=== PATIENT | female | born 1945 | race African-American/Black ===

== ENCOUNTER → 2017-07-15 | Outpatient (CLI) | payer MEDICARE ==
[~2017-07-15] MED LIST: MELO7.5 PO; PERC5TAB12 PO; TRAM50TA PO; TYLE325T PO; VITD400 PO; VOLT1GEL4 TP
[2017-07-15 09:57] LABS: AUTOMATED NEUTROPHIL # 4.4 TH/MM3 (1.8-7.7); BASOPHIL # 0.1 TH/MM3 (0-0.2); BASOPHIL % 0.9 % (0.0-2.0); EOSINOPHIL # 0.2 TH/MM3 (0-0.4); EOSINOPHIL % 2.6 % (0.0-4.0); HEMATOCRIT 33.9 % (35.0-46.0); HEMO FLAGS DIFF FINAL; LYMPH % 20.2 % (9.0-44.0); LYMPHOCYTE # 1.3 TH/MM3 (1.0-4.8); MEAN CELL VOLUME 67.7 FL (80.0-100.0); MEAN CORPUSCULAR HEMOGLOBIN 21.6 PG (27.0-34.0); MONO % 8.3 % (0.0-8.0); PLATELET COUNT 270 TH/MM3 (150-450); RED BLOOD COUNT 5.01 MIL/MM3 (4.00-5.30); RED CELL DISTRIBUTION WIDTH 14.6 % (11.6-17.2); WHITE BLOOD COUNT 6.4 TH/MM3 (4.0-11.0)
[2017-07-15 10:00] LABS: BLOOD, URINE NEG (NEG); COMMENT (UR) CULT NOT INDICATED; CULTURE IF INDICATED CULT NOT INDICATED; GLUCOSE,URINE NEG (NEG); KETONE, URINE NEG (NEG); MUCUS URINE FEW /lpf (OCC); NITRITE,URINE NEG (NEG); PH, URINE 5.5 (5.0-8.5); SQUAMOUS EPITHELIAL CELL URINE 1 /hpf (0-5); URINE COLOR YELLOW (YELLW/STRAW)
[2017-07-15 10:13] LABS: BICARBONATE 28.6 MEQ/L (21.0-32.0); POTASSIUM 4.1 MEQ/L (3.5-5.1)
--- NOTE | 2017-07-15 13:16 | EKG ---
Date Performed: 07/15/2017 Time Performed: 09:21:05 PTAGE: 71 years EKG: Sinus rhythm VOLTAGE CRITERIA FOR LVH POSSIBLE ANTERIOR MYOCARDIAL INFARCTION, OF INDETERMINATE AGE ABNORMAL ECG NO PREVIOUS TRACING DOCTOR: Adriano Mercado Interpretating Date/Time 07/15/2017 13:14:22
== END ==
LOC: CPRE 08:11
PROVIDERS: ATTEND Orthopaedic Surgery Orthopaedic Surgery of the Spine
DX: Z01.812 Encounter for preprocedural laboratory examination (principal); Z01.810 Encounter for preprocedural cardiovascular examination; M16.12 Unilateral primary osteoarthritis, left hip
CPT/HCPCS: 36415; 80048; 81001; 85025; 93005

== ENCOUNTER 2017-07-26 08:45 | Inpatient (IN) | payer MEDICARE ==
[~2017-07-26 08:45] MED LIST changes: -MELO7.5 PO
[2017-08-05] MEDS ORDERED: GENTAMICIN SULFATE 80 MG/2 ML VIAL ONE (08:31)
[2017-08-05] MEDS ORDERED: CHLORHEXIDINE GLUCONATE 4% SOLN 120 ML BTL TOPICAL SCH (09:30)
[2017-08-05] MEDS ORDERED: INSULIN HUMAN REGULAR 1,000 UNITS/10 ML VIAL SQ PRN (09:30)
[2017-08-05] MEDS ORDERED: SODIUM CHLORID 0.9% 500 ML IV PRN (09:30)
[2017-08-05] MEDS ORDERED: METOPROLOL TARTRATE 25 MG TAB PO PRN (09:30)
[2017-08-05] MEDS ORDERED: LACTATED RINGER'S 1000 ML IV PRN (09:30)
[2017-08-05] MEDS ORDERED: POVIDONE IODINE 5% (ANTISEPSIS KIT) 4 APPLICATIONS EACH NARE PRN (09:30)
[2017-08-05] MEDS ORDERED: CHLORHEXIDINE GLUCONATE 2 % 1 PACK (2 CLOTHS) TOPICAL PRN (09:30)
[2017-08-05] MEDS ORDERED: ACETAMINOPHEN 1000 MG/100 ML 100 ML IV ONE (10:39)
[2017-08-05] MEDS ORDERED: ARTIFICIAL TEARS OPTH OINT 3.5 APPLIC/3.5 GM TUBO ONE (10:39)
[2017-08-05] MEDS: VANCOMYCIN 1000 MG/NS 250 ML (for <70 kg) IV SCH ×4 (11:45→12:51)
[2017-08-05] MEDS: ceFAZolin 2 GM PREMIX 50 ML IV SCH ×2 (12:10→12:49)
[2017-08-05] MEDS ORDERED: PROPOFOL 500 MG/50 ML INJ 100 ML ONE (13:04)
--- NOTE | 2017-08-05 14:07 | HHI.PR ---
Immediate Post Op Note Procedure Date: Aug 05, 2017 Pre Op Diagnosis: L Hip severe OA,Acetabular Protrusio;RA Post Op Diagnosis: Same Surgeon: Connor Hickman MD Operational Trainer(s): Kelly Segura PA-C Procedure: L THR,Acetabular BG Complications: None Specimen(s) removed: None Estimated blood loss: 650cc Anesthesia: Spinal Drains: None Patient to: SDS Patient Condition: Good Implant/Devices: SEE IMPLANT LOG (if applicable) Date/Time of Procedure: SEE SURGICAL CARE RECORD Connor Hickman MD Aug 05, 2017 14:07
--- NOTE | 2017-08-05 14:07 | HHI.PR ---
Immediate Post Op Note Procedure Date: Aug 05, 2017 Pre Op Diagnosis: L Hip severe OA,Acetabular Protrusio;RA Post Op Diagnosis: Same Surgeon: Connor Hickman MD Pipe Stem Sawyer(s): Kelly Segura PA-C Procedure: L THR,Acetabular BG Complications: None Specimen(s) removed: None Estimated blood loss: 650cc Anesthesia: Spinal Drains: None Patient to: SDS Patient Condition: Good Implant/Devices: SEE IMPLANT LOG (if applicable) Date/Time of Procedure: SEE SURGICAL CARE RECORD Connor Hickman MD Aug 05, 2017 14:07
[2017-08-05] MEDS ORDERED: WALKER WHEELS/F1 MIS (14:13)
[2017-08-05] MEDS ORDERED: BEDSIDE COMMODE1 MI1 (14:13)
[2017-08-05] MEDS: SODIUM CHLORIDE 0.9% FLUSH 5 ML FLUSH IVF SCH ×2 (14:15→20:35)
[2017-08-05] MEDS ORDERED: Post-op Orders (for Pharmacy) MISC XX ONE (14:15)
[2017-08-05] MEDS ORDERED: SODIUM CHLORIDE 0.9% FLUSH 5 ML FLUSH IVF PRN (14:15)
[2017-08-05] MEDS ORDERED: ALUMINUM/MAGNESIUM/SIMETH 30 ML CUP PO PRN (14:15)
[2017-08-05] MEDS ORDERED: ZOLPIDEM TARTRATE 5 MG TAB PO PRN (14:15)
[2017-08-05] MEDS ORDERED: *morphine SULFATE 8 MG/ML PERIprocedure ONLY ONE ×3 (14:23→15:06)
[2017-08-05] MEDS ORDERED: DO NOT ADM ANY ANTICOAGULANT DRUGS PRN (14:25)
[2017-08-05] MEDS: LACTATED RINGER'S 1000 ML INJ 1,000 ML IV SCH (15:00)
[2017-08-05 15:10] LABS: HEMATOCRIT 24.4 % (35.0-46.0); HEMOGLOBIN 9.4 GM/DL (11.6-15.3)
--- NOTE | 2017-08-05 15:20 | PD.CONS ---
HPI Service [facility] Hospitalists Consult Requested By Dr. Connor Hickman Reason for Consult Medical Management Primary Care Physician Diagnoses: History of Present Illness Mrs. Bennett is a pleasant 72 y/o AAF with osteoarthritis, rheumatoid arthritis, GERD, chronic anemia and hx of breast cancer in 1998. [place] [facility] for left hip total arthroplasty with Dr. Hickman. [facility] Hospitalist team was consulted to help with medical management. Pt is seen post-operatively in the PACU but is still quite drowsy and had just received Morphine for pain. The history was obtained from the chart and review of the outpt medical records. Pt had a reported 650cc of estimated blood loss during surgery, repeat CBC post-op with Hgb 9.4. Pt does not have a Cotto cath in place. Review of Systems ROS Limitations: Clinical Condition Past Family Social History Past Medical History Per review of outpt records: Rheumatoid arthritis, follows with Dr. Krystal ANDERSEN Vitamin D Deficiency HTN per outpt records but not on any medications for this Hyperlipidemia per outpt records but not on any medications for this Thyroid goiter Osteoporosis Osteoarthritis Hx of breast cancer Hx of DVT while on OCP within the first year after her her first child was born MGUS Anemia Sickle cell trait Past Surgical History Per review of outpt records: Left Mastectomy, 1998 Right breast lumpectomy Reported Medications Percocet (Oxycodone-Acetaminophen) 5-325 mg Tab 1 Tab PO Q6H PRN Tylenol (Acetaminophen) 325 Mg Tab 325 Mg PO Q6H PRN Voltaren (Diclofenac Sodium) 1 % Gel..gram. 4 Gm TP QID Vitamin D3 (Cholecalciferol) 400 Unit Tab 400 Units PO DAILY Allergies: Coded Allergies: Sulfa (Sulfonamide Antibiotics) (Verified Allergy, Severe, 07/15/17) zinc (Verified Allergy, Severe, 07/15/17) Family History Per review of outpt records: Mother from a stroke at 91 y/o Sister at age 22 from blood clots Social History Per review of outpt records: Remote hx of tobacco use, smoked 1/2 ppd x 15 years, quit in 1977 No reported alcohol or illicit drug use Pt is , she has 2 children Physical Exam Vital Signs Vital Signs Date Time Temp Pulse Resp B/P (MAP) Pulse Ox O2 Delivery O2 Flow Rate FiO2 08/05/17 09:16 98.6 70 18 136/74 94 98 Physical Exam GENERAL: This is a well-nourished, well-developed patient, in no apparent distress. SKIN: No rashes, ecchymoses or lesions. Cool and dry. HEENT: Atraumatic. Normocephalic. No temporal or scalp tenderness. No scleral icterus. Airway patent. NECK: Trachea midline, supple, nontender, no meningeal signs. CARDIO: Regular. RESP: CTA bilaterally. No wheezes, rales, or rhonchi. ABD: +BS, soft, non-tender, nondistended. EXT: Extremities without clubbing, cyanosis, or edema. NEURO: Awake and alert. Motor and sensory grossly within normal limits. Normal speech. Assessment and Plan Problem List: (1) Osteoarthritis of left hip ICD Codes: M16.12 - Unilateral primary osteoarthritis, left hip Status: Chronic Plan: - Pt s/p left total hip arthroplasty on 08/05/[address] Hickman - Post-op pain control per Ortho - PT daily - IS - Constipation precautions - PPI - DVT prophylaxis with Coumadin (2) Chronic anemia ICD Codes: D64.9 - Anemia, unspecified Status: Chronic Plan: - Pt had about 650cc of blood loss reported during surgery - Repeat post-op Hgb 9.4, preop labs with hgb 10.9 - Monitor labs (3) GERD (gastroesophageal reflux disease) ICD Codes: K21.9 - Gastro-esophageal reflux disease without esophagitis Status: Chronic Plan: - PPI (4) Rheumatoid arthritis ICD Codes: M06.9 - Rheumatoid arthritis, unspecified Status: Chronic Assessment and Plan Patient examined. Assessment and plan formulated with Arabella Carrera PA-C. I agree with the above. Problem Qualifiers (1) Osteoarthritis of left hip: Qualified Codes: M16.12 - Unilateral primary osteoarthritis, left hip Arabella Carrera Aug 05, 2017 15:20 Checo Blandon MD Aug 05, 2017 16:11
--- NOTE | 2017-08-05 15:42 | RADRPT ---
EXAM DATE/TIME: 08/05/2017 15:01 [place] COMPARISON: No previous studies available for comparison. INDICATIONS : Post op left hip surgery. MEDICAL HISTORY : None. SURGICAL HISTORY : None. ENCOUNTER: Initial ACUITY: 1 day PAIN SCORE: 8/10 LOCATION: Left Hip. FINDINGS: Patient is status post placement of a left hip prosthesis. There is good position and alignment of th e prosthesis and bony structures. The bony structures are grossly intact. Postsurgical changes are pr esent. CONCLUSION: Good position and alignment on this postoperative examination. Rahul Amato MD on August 05, 2017 at 15:41 Board Certified Radiologist. This report was verified electronically.
[2017-08-05 16:00] VITALS: BP 120/80; PULSE 60; RESP 18; TEMP 96; O2SAT 100
[2017-08-05] MEDS: oxyCODONE/ACETAMINOPHEN 7.5 MG/325 MG TAB PO PRN ×2 (17:50→22:39)
[2017-08-05] MEDS: diphenhydrAMINE HCL 25 MG CAP PO PRN (17:50)
[2017-08-05] MEDS: ONDANSETRON HCL 4 MG/2 ML VIAL IVP PRN (18:01)
[2017-08-05 20:00] VITALS: BP 135/70; PULSE 95; RESP 17; TEMP 98.1; O2SAT 99
[2017-08-06] VITALS: BP 114/72; PULSE 90; RESP 16; TEMP 97.5; O2SAT 98
[2017-08-06] MEDS: MORPHINE SULFATE 4 MG/ML INJ IM PRN ×2 (03:14→08:40)
[2017-08-06] MEDS: LACTATED RINGER'S 1000 ML INJ 1,000 ML IV SCH ×2 (03:19→15:54)
[2017-08-06 04:00] VITALS: BP 136/72; PULSE 90; RESP 17; TEMP 97; O2SAT 97
[2017-08-06] MEDS: oxyCODONE/ACETAMINOPHEN 7.5 MG/325 MG TAB PO PRN ×3 (04:44→17:16)
[2017-08-06 06:17] LABS: INTERNATIONAL NORMALIZED RATIO 1.1 RATIO; PROTHROMBIN TIME - PATIENT 11.9 SEC (9.8-11.6)
--- NOTE | 2017-08-06 07:08 | PD.ORT.PN ---
Subjective Subjective Remarks patient is doing well, complains of post op hip pain Objective Vitals Vital Signs Date Time Temp Pulse Resp B/P (MAP) Pulse Ox O2 Delivery O2 Flow Rate FiO2 08/06/17 04:00 97.0 90 17 136/72 (93) 97 08/06/17 00:00 97.5 90 16 114/72 (86) 98 08/05/17 20:00 98.1 95 17 135/70 (91) 99 08/05/17 16:00 96.0 60 18 120/80 (93) 100 08/05/17 15:15 58 19 141/83 (102) 100 Nasal Cannula 2 08/05/17 15:00 97.9 56 19 143/59 (87) 100 Nasal Cannula 2 08/05/17 14:45 65 19 135/67 (89) 99 Nasal Cannula 2 08/05/17 14:30 71 19 140/70 (93) 100 Nasal Cannula 2 08/05/17 14:15 95.8 69 19 165/103 (123) 100 Nasal Cannula 2 08/05/17 14:15 95.8 08/05/17 09:16 98.6 70 18 136/74 (94) 98 I/O 08/05/17 08/05/17 08/05/17 08/06/17 08/06/17 08/06/17 07:00 15:00 23:00 07:00 15:00 23:00 Intake Total 2000 ml 480 ml 580 ml Output Total 800 ml Balance 1200 ml 480 ml 580 ml Intake Oral 480 ml 480 ml IV Total 100 ml Other 2000 ml Output Urine Total 150 ml Estimated Blood Loss 650 ml Bladder Scan Volume Amount 540 ml # Voids 1 Result Diagram: 08/05/17 1445 Other Results Laboratory Tests Test 08/06/17 05:35 Prothromb Time International Ratio 1.1 RATIO Prothrombin Time 11.9 SEC (9.8-11.6) Objective Remarks seen by Dr. Connor Hickman left hip dressing dry and intact +NVI no calf tenderness, neg homans sign Assessment & Plan Assessment and Plan POD # 1 s/p L MATEUS PT-WBAT low dose coumadin for dvt prop anticipate d/c to SNF on wednesday, 3007 form signed Percocet, Coumadin rx in chart- fill in coumadin dose Kelly Segura Aug 06, 2017 07:08
[2017-08-06 08:00] VITALS: BP 106/60; PULSE 81; RESP 17; TEMP 97.8; O2SAT 97
--- NOTE | 2017-08-06 08:32 | MP ---
cc: GÉNESIS HICKMAN M.D., MD,SHAUNA DORSEY MD,KILO BIRD MD,DOREEN DATE OF SURGERY 08/05/2017 PREOPERATIVE DIAGNOSIS 1. Left hip severe osteoarthritis, acetabular protrusio 2. Rheumatoid arthritis POSTOPERATIVE DIAGNOSIS 1. Left hip severe osteoarthritis, acetabular protrusio 2. Rheumatoid arthritis PROCEDURE Left total hip arthroplasty, acetabular bone grafting. SURGEON Richie Hickman MD ASSESSMENT Kelly Segura PA-C SPECIMENS None ESTIMATED BLOOD LOSS 650 cc COMPLICATIONS None ANESTHESIA Spinal DRAINS None CONDITION Stable PLAN OF ACTIVITY Per orders. PROCEDURE My cardiovascular physician assistant, Kelly Segura PA-C, was present for the entire surgical case. She was medically necessary for the entire case because of the complexity of the case and to facilitate the performance of the procedure. The INSTRUMENTATION TECHNICIAN at the back table was not a skill set for this case to manipulate the instruments e.g., the multiple different types of soft tissue retractors, trial implants and permanent implants. The patient was brought into the operating room and had satisfactory spinal anesthesia by the Department of Anesthesia. The patient was carefully placed in the lateral decubitus position. Because of the patient's obesity, great care was made to protect all pressure points. The left hip and lower extremity was all prepped and draped in the usual sterile manner. A small posterolateral exposure to the hip was made. Dissection was carried through a considerable amount of adipose tissue. The fascia silva and gluteus audie was incised in line with the skin incision. Bertin Charnley retractors were placed into the wound in order to allow better exposure. Great care was made to protect the sciatic nerve throughout the entire operative procedure. The short externals were removed as a group. The hip abductors were preserved. A capsulotomy was performed. Because of the patient's acetabular protrusio, dislocation of the hip was not easily obtained. Osteotomy was made on the femoral neck. Attention was then brought to the proximal femur and then appropriate osteotomy of the neck for the femoral prosthesis. Attention now brought back to the acetabulum. The femoral head was able to be removed without difficulty. The patient was found to have severe osteoarthritis and acetabular protrusio. The acetabulum was then reamed sequentially to 47 mm outer diameter. Press-Fit bisector cup was found to be very stable and satisfactory. Bone grafting was used from the proximal femur and also from the acetabular reamers. This was placed into the prepared protrusio acetabulum. Attention brought to the femoral side to the femur. Using the [employer] system, it was sequentially broached to a #6 broach, standard offset, -3 neck. Reduction was made and the patient was found to have satisfactory correction of her limb length discrepancy. She did have a left lower extremity that was shorter than the right lower extremity preoperatively. The patient was also found to have excellent stability and satisfactory range of motion. The hip again was dislocated posteriorly and all trial components were removed. The #6 standard offset stem was placed in approximately 20 degrees of anteversion with an excellent "fit and fill." The hip was reduced with a 28 mm ball, -3 neck with the 47 mm Bicentric cup. Again, the patient was found to have excellent stability, satisfactory limb lengths, and satisfactory range of motion. The wound was irrigated with copious amounts, the wound itself was dry. The short externals were repaired back to the greater trochanter with drill holes using #2 Tycron suture. The wound was irrigated again with copious amounts of sterile saline solution. The fascia silva and gluteus audie were closed in line with the skin incision with a #2 Tycron suture. The subcutaneous tissues closed in multiple layers using 0-Vicryl and 2-0 Vicryl sutures because of the patient's considerable amount of adipose tissue. The skin was approximated with running subcuticular 2-0 nylon. Sterile dressings were applied. The patient tolerated the procedure well and arrived in the recovery room in stable and satisfactory condition. MD RUBEN Pisano/NICOLE /2:16 PM /8:18 AM
[2017-08-06] MEDS: SODIUM CHLORIDE 0.9% FLUSH 5 ML FLUSH IVF SCH ×2 (08:42→20:58)
[2017-08-06] MEDS: diphenhydrAMINE HCL 25 MG CAP PO PRN ×2 (09:19→20:58)
[2017-08-06 12:00] VITALS: BP 146/85; PULSE 88; RESP 17; TEMP 96.8; O2SAT 98
[2017-08-06 12:08] LABS: AUTOMATED NEUTROPHIL # 8.2 TH/MM3 (1.8-7.7); BASOPHIL % 0.2 % (0.0-2.0); EOSINOPHIL # 0.1 TH/MM3 (0-0.4); EOSINOPHIL % 0.8 % (0.0-4.0); HEMATOCRIT 26.8 % (35.0-46.0); HEMOGLOBIN 8.3 GM/DL (11.6-15.3); LYMPH % 6.5 % (9.0-44.0); LYMPHOCYTE # 0.6 TH/MM3 (1.0-4.8); MEAN CELL VOLUME 69.2 FL (80.0-100.0); MEAN CORPUSCULAR HEMOGLOBIN 21.5 PG (27.0-34.0); MEAN CORPUSCULAR HGB CONC 31.1 % (32.0-36.0); MONO % 6.8 % (0.0-8.0); MONOCYTE # 0.6 TH/MM3 (0-0.9); NEUT % 85.7 % (16.0-70.0); PLATELET COUNT 172 TH/MM3 (150-450); RED BLOOD COUNT 3.87 MIL/MM3 (4.00-5.30); RED CELL DISTRIBUTION WIDTH 14.7 % (11.6-17.2); WHITE BLOOD COUNT 9.6 TH/MM3 (4.0-11.0)
[2017-08-06] MEDS: WARFARIN SOD 5 MG TAB PO SCH (15:53)
[2017-08-06 16:00] VITALS: BP 126/69; PULSE 82; RESP 17; TEMP 98.8; O2SAT 96
[2017-08-06 19:52] VITALS: BP 121/66; PULSE 96; RESP 17; TEMP 98.4; O2SAT 98
[2017-08-06] MEDS: DOCUSATE SODIUM 100 MG CAP PO SCH (20:58)
[2017-08-07] VITALS: BP 138/68; PULSE 92; RESP 16; TEMP 99.6; O2SAT 94
[2017-08-07] MEDS: LACTATED RINGER'S 1000 ML INJ 1,000 ML IV SCH ×2 (00:52→17:00)
[2017-08-07] MEDS ORDERED: BISACODYL 10 MG SUPP RECTAL PRN (02:00)
[2017-08-07] MEDS ORDERED: MAGNESIUM HYDROXIDE SUSP 30 ML CUP PO PRN (02:00)
[2017-08-07] MEDS ORDERED: LACTULOSE SYRUP 20 GM/30 ML CUP PO PRN (02:00)
[2017-08-07] MEDS: oxyCODONE/ACETAMINOPHEN 7.5 MG/325 MG TAB PO PRN ×4 (02:05→21:28)
[2017-08-07] MEDS: ONDANSETRON HCL 4 MG/2 ML VIAL IVP PRN (02:19)
[2017-08-07 07:16] LABS: INTERNATIONAL NORMALIZED RATIO 1.2 RATIO; PROTHROMBIN TIME - PATIENT 13.1 SEC (9.8-11.6)
--- NOTE | 2017-08-07 07:42 | PD.ORT.PN ---
Subjective Post Op Day #: 2 Subjective Remarks The patient is resting comfortably in bed in NAD. Patient reports mild to moderate left hip/thigh pain. Objective Vitals Vital Signs Date Time Temp Pulse Resp B/P (MAP) Pulse Ox O2 Delivery O2 Flow Rate FiO2 08/07/17 00:00 99.6 92 16 138/68 (91) 94 08/06/17 19:52 98.4 96 17 121/66 (84) 98 08/06/17 16:00 98.8 82 17 126/69 (88) 96 08/06/17 12:00 96.8 88 17 146/85 (105) 98 08/06/17 08:00 97.8 81 17 106/60 (75) 97 I/O 08/06/17 08/06/17 08/06/17 08/07/17 08/07/17 08/07/17 07:00 15:00 23:00 07:00 15:00 23:00 Intake Total 580 ml 425 ml 720 ml 360 ml Balance 580 ml 425 ml 720 ml 360 ml Intake Oral 480 ml 425 ml 720 ml 360 ml IV Total 100 ml # Voids 1 2 2 1 # Bowel Movements 0 Result Diagram: 08/06/17 1140 Other Results Laboratory Tests Test 08/07/17 05:20 Prothromb Time International Ratio 1.2 RATIO Prothrombin Time 13.1 SEC (9.8-11.6) Procedures Left MATEUS Objective Remarks left hip dressing dry and intact +NVI no calf tenderness, neg homans sign Mild swelling to left hip CKS in place. Assessment & Plan Ortho Post Op Day #: 2 Problem List: Assessment and Plan POD # 2 s/p L MATEUS PT-WBAT low dose coumadin for dvt prop anticipate d/c to SNF (in [place]) on 3007 form signed Percocet, Coumadin rx in chart- fill in coumadin dose. F/U with Dr. Connor Hickman in the office. Shin Tao Aug 07, 2017 07:42
[2017-08-07 08:00] VITALS: BP 125/76; PULSE 93; RESP 19; TEMP 98.6; O2SAT 94
[2017-08-07] MEDS: DOCUSATE SODIUM 100 MG CAP PO SCH ×2 (08:16→21:21)
[2017-08-07] MEDS: SODIUM CHLORIDE 0.9% FLUSH 5 ML FLUSH IVF SCH ×2 (08:17→21:00)
[2017-08-07 08:24] LABS: HEMATOCRIT 24.9 % (35.0-46.0); HEMOGLOBIN 8.1 GM/DL (11.6-15.3)
[2017-08-07] MEDS: diphenhydrAMINE HCL 25 MG CAP PO PRN (11:08)
[2017-08-07 11:30] VITALS: O2SAT 96
[2017-08-07 12:00] VITALS: BP 135/68; PULSE 87; RESP 18; TEMP 97.5; O2SAT 97
[2017-08-07] MEDS: WARFARIN SOD 5 MG TAB PO SCH (15:06)
[2017-08-07 16:00] VITALS: BP 131/74; PULSE 70; RESP 18; TEMP 97.1; O2SAT 97
[2017-08-07 19:50] VITALS: BP 120/69; PULSE 94; RESP 16; TEMP 97.5; O2SAT 95
[2017-08-08 00:30] VITALS: BP 119/57; PULSE 98; RESP 17; TEMP 97.8; O2SAT 92
[2017-08-08] MEDS: oxyCODONE/ACETAMINOPHEN 7.5 MG/325 MG TAB PO PRN ×4 (05:03→11:16)
[2017-08-08 05:11] LABS: INTERNATIONAL NORMALIZED RATIO 1.3 RATIO
[2017-08-08] MEDS: LACTATED RINGER'S 1000 ML INJ 1,000 ML IV SCH (05:30)
--- NOTE | 2017-08-08 07:57 | PD.ORT.PN ---
Subjective Post Op Day #: 3 Subjective Remarks The patient is resting comfortably in bed in [facility]. Patient reports pain is controlled with medication. Objective Vitals Vital Signs Date Time Temp Pulse Resp B/P (MAP) Pulse Ox O2 Delivery O2 Flow Rate FiO2 08/08/17 00:30 97.8 98 17 119/57 (77) 92 08/07/17 21:00 21 08/07/17 19:50 97.5 94 16 120/69 (86) 95 08/07/17 16:00 97.1 70 18 131/74 (93) 97 08/07/17 12:00 97.5 87 18 135/68 (90) 97 08/07/17 11:30 96 21 08/07/17 08:00 98.6 93 19 125/76 (92) 94 I/O 08/07/17 08/07/17 08/07/17 08/08/17 08/08/17 08/08/17 07:00 15:00 23:00 07:00 15:00 23:00 Intake Total 360 ml 240 ml 240 ml Balance 360 ml 240 ml 240 ml Intake Oral 360 ml 240 ml 240 ml # Voids 1 3 1 1 # Bowel Movements 0 1 Result Diagram: 08/07/17 0752 Other Results Laboratory Tests Test 08/08/17 04:00 Prothromb Time International Ratio 1.3 RATIO Prothrombin Time 14.0 SEC (9.8-11.6) Procedures Left MATEUS Objective Remarks left hip dressing clean,dry, and intact +NVI no calf tenderness, neg homans sign Mild swelling to left hip CKS in place. Assessment & Plan Ortho Post Op Day #: 3 Problem List: Assessment and Plan POD # 3 s/p L MATEUS PT-WBAT low dose coumadin for dvt prop anticipate d/c to SNF (in [place]) on 3007 form signed Percocet, Coumadin rx in chart- coumadin dose filled in. Stable for discharge to [facility] today. Patient has been accepted. F/U with Dr. Connor Hickman in the office. Shin Tao Aug 08, 2017 07:57
--- NOTE | 2017-08-08 07:57 | PD.ORT.PN ---
Subjective Post Op Day #: 3 Subjective Remarks The patient is resting comfortably in bed in [facility]. Patient reports pain is controlled with medication. Objective Vitals Vital Signs Date Time Temp Pulse Resp B/P (MAP) Pulse Ox O2 Delivery O2 Flow Rate FiO2 08/08/17 00:30 97.8 98 17 119/57 (77) 92 08/07/17 21:00 21 08/07/17 19:50 97.5 94 16 120/69 (86) 95 08/07/17 16:00 97.1 70 18 131/74 (93) 97 08/07/17 12:00 97.5 87 18 135/68 (90) 97 08/07/17 11:30 96 21 08/07/17 08:00 98.6 93 19 125/76 (92) 94 I/O 08/07/17 08/07/17 08/07/17 08/08/17 08/08/17 08/08/17 07:00 15:00 23:00 07:00 15:00 23:00 Intake Total 360 ml 240 ml 240 ml Balance 360 ml 240 ml 240 ml Intake Oral 360 ml 240 ml 240 ml # Voids 1 3 1 1 # Bowel Movements 0 1 Result Diagram: 08/07/17 0752 Other Results Laboratory Tests Test 08/08/17 04:00 Prothromb Time International Ratio 1.3 RATIO Prothrombin Time 14.0 SEC (9.8-11.6) Procedures Left MATEUS Objective Remarks left hip dressing clean,dry, and intact +NVI no calf tenderness, neg homans sign Mild swelling to left hip CKS in place. Assessment & Plan Ortho Post Op Day #: 3 Problem List: Assessment and Plan POD # 3 s/p L MATEUS PT-WBAT low dose coumadin for dvt prop anticipate d/c to SNF (in [place]) on 3007 form signed Percocet, Coumadin rx in chart- coumadin dose filled in. Stable for discharge to [facility] today. Patient has been accepted. F/U with Dr. Connor Hickman in the office. Shin Tao Aug 08, 2017 07:57
--- NOTE | 2017-08-08 07:57 | PD.ORT.PN ---
Subjective Post Op Day #: 3 Subjective Remarks The patient is resting comfortably in bed in [facility]. Patient reports pain is controlled with medication. Objective Vitals Vital Signs Date Time Temp Pulse Resp B/P (MAP) Pulse Ox O2 Delivery O2 Flow Rate FiO2 08/08/17 00:30 97.8 98 17 119/57 (77) 92 08/07/17 21:00 21 08/07/17 19:50 97.5 94 16 120/69 (86) 95 08/07/17 16:00 97.1 70 18 131/74 (93) 97 08/07/17 12:00 97.5 87 18 135/68 (90) 97 08/07/17 11:30 96 21 08/07/17 08:00 98.6 93 19 125/76 (92) 94 I/O 08/07/17 08/07/17 08/07/17 08/08/17 08/08/17 08/08/17 07:00 15:00 23:00 07:00 15:00 23:00 Intake Total 360 ml 240 ml 240 ml Balance 360 ml 240 ml 240 ml Intake Oral 360 ml 240 ml 240 ml # Voids 1 3 1 1 # Bowel Movements 0 1 Result Diagram: 08/07/17 0752 Other Results Laboratory Tests Test 08/08/17 04:00 Prothromb Time International Ratio 1.3 RATIO Prothrombin Time 14.0 SEC (9.8-11.6) Procedures Left MATEUS Objective Remarks left hip dressing clean,dry, and intact +NVI no calf tenderness, neg homans sign Mild swelling to left hip CKS in place. Assessment & Plan Ortho Post Op Day #: 3 Problem List: Assessment and Plan POD # 3 s/p L MATEUS PT-WBAT low dose coumadin for dvt prop anticipate d/c to SNF (in [place]) on 3007 form signed Percocet, Coumadin rx in chart- coumadin dose filled in. Stable for discharge to [facility] today. Patient has been accepted. F/U with Dr. Connor Hickman in the office. Shin Tao Aug 08, 2017 07:57
[2017-08-08 08:00] VITALS: BP 117/62; PULSE 86; RESP 18; TEMP 95.7; O2SAT 95
[2017-08-08 08:14] VITALS: O2SAT 94
[2017-08-08] MEDS: DOCUSATE SODIUM 100 MG CAP PO SCH (08:33)
[2017-08-08 12:00] VITALS: BP 124/66; PULSE 83; RESP 18; TEMP 98.7; O2SAT 95
== END 2017-08-08 15:17 | DRG 470 ==
LOC: EDUNIT# 15:00 → HSDI 08-05 08:24 → N06A 08-05 15:38
PROVIDERS: ADMIT Orthopaedic Surgery Orthopaedic Surgery of the Spine; ATTEND Orthopaedic Surgery Orthopaedic Surgery of the Spine
PROC: 0QU507Z Supplement Left Acetabulum with Autologous Tissue Substitute, Open Approach (ICD-10-PCS; 2017-08-05)
PROC: 0SRB0JA Replacement of Left Hip Joint with Synthetic Substitute, Uncemented, Open Approach (ICD-10-PCS; principal; 2017-08-05 11:41)
DX: M16.12 Unilateral primary osteoarthritis, left hip (principal); M06.9 Rheumatoid arthritis, unspecified; D64.9 Anemia, unspecified; K21.9 Gastro-esophageal reflux disease without esophagitis; M24.7 Protrusio acetabuli; E55.9 Vitamin D deficiency, unspecified; E78.5 Hyperlipidemia, unspecified; I10 Essential (primary) hypertension; Z85.3 Personal history of malignant neoplasm of breast
CPT/HCPCS: 73501; 85014; 85018; 85025; 85610; 86850; 86900; 86901; 86920; 94150; J0131; J0690; J1580; J2270; J2405; J3370; J7050; J7120; L1830